=== PATIENT | male | born 1990 | race Caucasian/White ===

== ENCOUNTER 2022-05-28 06:04 | Emergency (ER) | payer OTHER ==
[~2022-05-28] VITALS: Ht 177.8 cm; Wt 76.0 kg
[2022-05-28 06:10] VITALS: BP 134/78
[2022-05-28] MEDS ORDERED: KETOROLAC 60MG/2ML VIAL IM ONE (06:30)
[2022-05-28] MEDS ORDERED: KETOROLAC 60MG/2ML VIAL IM NR (12:48)
[2022-05-28] MEDS ORDERED: HYDR-4001 MT (13:36)
[2022-05-28] MEDS ORDERED: IBUP-2029 MT (13:36)
== END 2022-05-28 13:56 | disposition home or self-care (01) ==
LOC: ER 06:29
DX: S82.52XA Displaced fracture of medial malleolus of left tibia, initial encounter for closed fracture (principal); W18.39XA Other fall on same level, initial encounter; Y93.02 Activity, running; Y92.89 Other specified places as the place of occurrence of the external cause
CPT/HCPCS: 29515; 73610; 96372; 99283; J1885

== ENCOUNTER 2022-11-01 05:07 | Emergency (ER) | payer OTHER ==
[~2022-11-01] VITALS: Ht 177.8 cm; Wt 75.0 kg
[~2022-11-01 05:07] MED LIST: HYDR-4001 MT; IBUP-2029 MT
[2022-11-01 05:15] VITALS: BP 140/93
[2022-11-01] MEDS ORDERED: IBUPROFEN 600MG TABLET PO STA (05:21)
== END 2022-11-01 14:52 | disposition left against medical advice (07) ==
LOC: ER 05:29
DX: R07.89 Other chest pain (principal); F41.9 Anxiety disorder, unspecified; J45.909 Unspecified asthma, uncomplicated
CPT/HCPCS: 93005; 99283